=== PATIENT | female | born 1970 ===

== ENCOUNTER 2024-04-01 16:22 | Emergency (ER) | payer MEDICAID ==
[~2024-04-01] VITALS: Ht 167.6 cm; Wt 79.5 kg
[2024-04-01 16:27] VITALS: TEMP 97.5
[2024-04-01 17:08] LABS: BASO # 0.1 K/mm3 (0.0-0.2); BASO % 1.4 % (0.0-2.0); EOS # 0.1 K/mm3 (0.0-0.7); EOS % 2.2 % (0.0-4.0); GRAN # 2.5 K/mm3 (1.4-6.5); GRAN % 49.3 % (42.2-75.2); HEMOGLOBIN 12.3 g/dl (12.5-16.0); LYMPH # 1.9 K/mm3 (1.2-3.4); LYMPH % 38.2 % (20.0-51.0); MEAN CELL VOLUME 98 fl (80.0-100.0); MEAN CORPUSCULAR HEMOGLOBIN 33 pg (27-31); MEAN CORPUSCULAR HGB CONC 34 g/dl (33.0-37.0); MEAN PLATELET VOLUME 9.6 fl (7.4-10.4); MONO # 0.4 K/mm3 (0.1-0.6); MONO % 8.7 % (1.7-9.3); PLATELET COUNT 197 K/mm3 (130-400); RED BLOOD COUNT 3.75 M/mm3 (4.10-5.30); REDCELL DISTRIBUTION WIDTH-CV 13.9 % (11.5-14.5)
[2024-04-01 17:09] LABS: HEMATOCRIT 36.7 % (37.0-47.0)
[2024-04-01 17:18] LABS: ALANINE AMINOTRANSFERASE 17 U/L (0-55); ALBUMIN 4.8 g/dL (3.5-5.0); ALKALINE PHOSPHATASE 57 U/L (40-150); ANION GAP 11 mmol/L (7-16); AST,SGOT 39 U/L (5-34); BLOOD UREA NITROGEN 13 mg/dL (10-20); C-REACTIVE PROTEIN 0.03 mg/dL (0.00-0.50); CALCIUM 10.1 mg/dL (8.4-10.2); CHLORIDE 103 mEq/L (98-107); CREATININE, serum 1.09 mg/dL (0.57-1.11); GLUCOSE 101 mg/dL (70-99); POTASSIUM 3.8 mEq/L (3.5-4.5); SODIUM 139 mEq/L (136-145); TOTAL PROTEIN 8.4 g/dl (6.2-8.1)
[2024-04-01 17:24] LABS: TROPONIN-I < 0.010 ng/mL (0.00-0.033)
[2024-04-01] MEDS ORDERED: DIFLUCAN150 MG PO (18:25)
[2024-04-01] MEDS ORDERED: NIZORAL CR 30GM TOP (18:27)
[2024-04-01 18:50] VITALS: BP 114/90; PULSE 76
== END 2024-04-01 18:50 | disposition home or self-care (01) ==
LOC: COL.ER 16:22 → EDBD 16:24 → COL.ER 16:24
PROVIDERS: Nurse Practitioner
DX: B35.3 Tinea pedis (principal); R07.9 Chest pain, unspecified